=== PATIENT | male | born 1985 | race African-American/Black ===

== ENCOUNTER 2020-10-02 12:16 | Emergency (ER) | payer SELFPAY ==
[~2020-10-02] VITALS: Ht 167.6 cm; Wt 126.1 kg
[2020-10-02 13:07] VITALS: BP 166/72
--- NOTE | 2020-10-02 13:28 | PHYS DOC ---
Past Medical History Past Medical History: No Pertinent History Past Surgical History: Other Additional Past Surgical Histo: rt thumb fx repair w/pins Smoking Status: Current Every Day Smoker Additional Information: / ppd Alcohol Use: None Additional Information: denies Social History Narrative: denies General Adult EDM: Chief Complaint: HOMELESS HPI: HPI: Patient is a 35 year old male patient who presents to the ED today to be evaluated for altered mental status. Patient is alert oriented x4 questioning why he is in the emergency room. Patient states his girlfriend just dropped him to this hospital. Patient has no complaints. He is answering all questions appropriately. He states he has an external fixator on the right thumb and is scheduled to have it removed next week. Review of Systems: Review of Systems: Constitutional: Denies fever or chills. [] Eyes: Denies change in visual acuity. [] HENT: Denies nasal congestion or sore throat. [] Respiratory: Denies cough or shortness of breath. [] Cardiovascular: Denies chest pain or edema. [] GI: Denies abdominal pain, nausea, vomiting, bloody stools or diarrhea. [] : Denies dysuria. [] Musculoskeletal: Reports right thumb with external fixator. Denies back pain or joint pain. [] Integument: Denies rash. [] Neurologic: AMS. Denies headache, focal weakness or sensory changes. [] Psychiatric: Denies depression or anxiety. [] Heart Score: C/O Chest Pain: N/A Risk Factors: Risk Factors: DM, Current or recent (<one month) smoker, HTN, HLP, family history of CAD, obesity. Risk Scores: Score 0 - 3: 2.5% MACE over next 6 weeks - Discharge Home Score 4 - 6: 20.3% MACE over next 6 weeks - Admit for Clinical Observation Score 7 - 10: 72.7% MACE over next 6 weeks - Early Invasive Strategies Allergies: Allergies: Allergies Coded Allergies Type Severity Reaction Last Updated Verified No Known Drug Allergies 10/02/20 No Physical Exam: PE: Constitutional: Well developed, well nourished, no acute distress, non-toxic appearance. [] HENT: Normocephalic, atraumatic, bilateral external ears normal, oropharynx moist, no oral exudates, nose normal. [] Eyes: PERRLA, EOMI, conjunctiva normal, no discharge. [] Neck: Normal range of motion, no tenderness, supple, no stridor. [] Cardiovascular:Heart rate regular rhythm, no murmur [] Lungs & Thorax: Bilateral breath sounds clear to auscultation [] Abdomen: Bowel sounds normal, soft, no tenderness, no masses, no pulsatile m asses. [] Skin: Warm, dry, no erythema, no rash. [] Back: No tenderness, no CVA tenderness. [] Extremities: No tenderness, no cyanosis, no clubbing, ROM intact, right stump with mild swelling, there is an external fixator noted on the right thumb. No redness, range of motion limited due to swelling and pain. No signs of infection. Neurologic: Alert and oriented X 4, normal motor function, normal sensory function, no focal deficits noted. Cranial nerves II through XII intact Psychologic: Affect normal, judgement normal, mood normal. [] Current Patient Data: Vital Signs: Vital Signs Date Time Temp Pulse Resp B/P (MAP) Pulse Ox O2 Delivery O2 Flow Rate FiO2 10/02/20 13:07 96 20 166/72 (103) Room Air 10/02/20 12:35 99.5 95 99.5 EKG: EKG: [] Radiology/Procedures: Radiology/Procedures: [] Course & Med Decision Making: Course & Med Decision Making Pertinent Labs and Imaging studies reviewed. (See chart for details) This is a 35-year-old male patient who was dropped to the ED for altered mental status. Patient is alert oriented x4, he has no complaints. I have talked to patient at length, he states he has no reason to be in the emergency room. He has an external fixator on the right thumb and has an appointment to have it removed next week. He was discharged to home. I contacted patient's girlfriend Mari Mixon on why she dropped patient to the emergency room, she states patient needs to be examined but has no reason for dropping patient in the emergency room. Mamie Disclaimer: Mamie Disclaimer: This electronic medical record was generated, in whole or in part, using a voice recognition dictation system. Departure Departure Impression: Primary Impression: Well adult health check Disposition: HOME / SELF CARE / HOMELESS Condition: STABLE Patient Instructions: Altered Mental Status Additional Instructions: You were examined in the emergency room. Please follow-up with your hand surgeon that did your procedure on your finger. Try and elevate the finger above your heart. Try and ice the finger. SARANYA DICK APRN October 02, 2020 13:28
== END 2020-10-02 13:48 | disposition home or self-care (01) ==
LOC: ER 12:16
DX: R41.82 Altered mental status, unspecified (principal); F17.200 Nicotine dependence, unspecified, uncomplicated; Z59.0 Homelessness
CPT/HCPCS: 99281